=== PATIENT | female | born 1990 | race Caucasian/White ===

== ENCOUNTER → 2018-05-20 16:24 | Outpatient (CLI) | payer OTHER, SELFPAY ==
[2018-05-20 18:04] LABS: Add Manual Diff / Slide Review NO; Basophils Percent Auto 0.3 % (0-2); Eosinophils Percent Auto 0.5 % (2-4); Hematocrit 35.7 % (36-46); Hemoglobin 12.2 g/dL (12.0-16.0); Lymphocytes Percent Auto 24.6 % (25-40); Mean Corpuscular HGB Conc 34.3 % (30-36); Mean Corpuscular Hemoglobin 30.8 PG (26-34); Mean Corpuscular Volume 89.8 fL (80-100); Monocytes Percent Auto 7.9 % (3-14); Neutrophils Absolute Auto 4100 /uL (3000-5900); Neutrophils Percent Auto 66.7 % (50-75); Platelet Count 257 X10^3/uL (150-400); Red Blood Cell Count 3.98 X10^6/uL (4.0-5.2); Red Cell Distribution Width 12.6 % (11.6-14.8); White Blood Cell Count 6.2 X10^3/uL (4.5-11.0)
[2018-05-20 18:29] LABS: Appearance Urine UA CLEAR; Bilirubin Urine UA NEGATIVE (NEGATIVE); Color Urine UA YELLOW; Glucose Urine UA NEGATIVE (Normal); Ketones Urine UA NEGATIVE (NEGATIVE); Leukocyte Esterase Urine UA NEGATIVE (NEGATIVE); Nitrite Urine UA POSITIVE (Negative); Occult Blood Urine UA 2+ (Negative); Protein Urine UA NEGATIVE (Negative); Specific Gravity Urine UA <=1.005 (1.000-1.035); Urobilinogen Urine UA 0.2 E.U./dL (0.2)
[2018-05-20 18:32] LABS: Hep C Virus Ab w/Reflex Quant NEGATIVE s/c (NEGATIVE); Hepatitis B Surface Antigen NEGATIVE s/c (NEGATIVE)
[2018-05-20 18:33] LABS: HIV 1 and 2 Antibody NEGATIVE (NEGATIVE)
[2018-05-20 18:34] LABS: Bacteria Urine None Seen; WBC Urine None Seen (0-5/HPF)
[2018-05-20 18:39] LABS: RBC Urine 0-1/HPF (0-5/HPF)
[2018-05-22 14:34] LABS: RPR Screen Nonreactive (Nonreactive)
[2018-05-23 13:49] LABS: HSV 2 IGG AB 6.46 index (< 0.90); HSV1IGG < 0.90 index (< 0.90)
[2018-05-23 13:59] LABS: Varicella IgG Antibody < 135.00 Index (< 135.00)
== END ==
PROVIDERS: Visit Provider Obstetrics & Gynecology
DX: Z34.91 Encounter for supervision of normal pregnancy, unspecified, first trimester (principal)
CPT/HCPCS: 36415; 80055; 81003; 81015; 86695; 86696; 86703; 86787; 86803; 86850; 86900; 86901; 87077; 87086

== ENCOUNTER → 2018-07-02 12:13 | Outpatient (CLI) | payer OTHER, SELFPAY ==
[2018-07-09 12:39] LABS: AFP, Serum 36.7 ng/mL; Calc Gestational Age 16.3; Cigarette Smoker NOT GIVEN; Donated Egg N; Donor Egg Age NOT GIVEN; Estriol, Free 0.81 ng/mL; Inhibin A, Dimeric 93 pg/mL; Maternal Weight 182 lbs; Number of Fetuses 1; Previous Pregnancy Down Syndro N; hCG, MoM 1.66; hCG, Serum 48.2 IU/mL
== END ==
PROVIDERS: Visit Provider Obstetrics & Gynecology
DX: Z34.82 Encounter for supervision of other normal pregnancy, second trimester (principal)
CPT/HCPCS: 36415; 82105; 82677; 84702; 86336

== ENCOUNTER → 2018-07-30 09:52 | Outpatient (CLI) | payer OTHER, SELFPAY ==
--- NOTE | 2018-07-30 09:57 | DI.US.S_ITS ---
PROCEDURE: US OB >= 14 WEEKS FETUS INDICATIONS: ANATOMY OUTSIDE/PRIOR DATING DATA: Last menstrual period (LMP): 03/15/18. LMP-based estimated date of delivery (RAMOS): 12/20/18. First dating scan (date and location): 05/28/18. Estimated date of delivery (RAMOS) from first dating scan: 12/15/18. TECHNIQUE: Real-time scanning was performed of the fetus, with image documentation and biometric measurements. COMPARISON: [facility], OB <= 14 WEEKS FETUS, 05/28/2018, 9:00. [facility], , OB >= 14 WEEKS FETUS, 07/02/2018, 12:02. FINDINGS: General: A single living intrauterine gestation is present. Presentation: Vertex. Placenta: Placental position is fundal, without previa. Amniotic fluid index: 15 point cm, normal range is 5-24 cm. heart rate: 144 beats per minute. Maternal cervical canal: 4.8 cm long. Normal lower limit is 2.5 cm. biometrics: Biparietal diameter: 4.9 cm 20 weeks 5 days Head circumference: 18.1 cm 20 weeks 3 days Abdominal circumference: 16.2 cm 21 weeks 2 days Femur length: 3.2 cm 20 weeks zero days Estimated gestational age from initial scan: 20 weeks 2 days Composite gestational age from present scan: 20 weeks 4 days Estimated weight and percentile: 370 g 68th percentile Measurement variability for biometric dating: +/- 7 days from 14 weeks to 15 weeks 6 days gestation, +/- 10 days from 16 weeks to 21 weeks 6 days gestation, +/- 2 weeks from 22 weeks to 27 weeks 6 days gestation, +/- 3 weeks for 28 weeks gestation or later. weight reference: 4500 g or EFW >90/95% is considered macrosomia or large for gestational age. EFW <10% is small for gestational age. EFW 5% or less is considered intra-uterine growth restriction. Anatomic survey: Neuro: Ventricles are non-dilated at less than 10 mm. Cisterna magna is normal at 3-11 mm. Cerebellum is normal in size and morphology. Nuchal skin fold: Normal at less than 6 mm between 14-21 weeks gestational age. Face: Nose and lips, facial profile are normal. Spine: No evidence for spina bifida. Heart: 4-chambered heart is present, with normal ventricular outflow tracts. Diaphragm: Diaphragm is intact. Stomach: Left-sided stomach is present. Kidneys: No hydronephrosis. Normal is less than 5 mm in 2nd trimester, less than 7 mm in 3rd trimester. Cord: 3-vessel cord has orthotopic insertion. Bladder: Normal in size. Extremities: All 4 extremities identified. IMPRESSION: 1. Single live intrauterine with ultrasound gestational age today is 20 weeks 4 days compared to 20 weeks 2 days from initial ultrasound. Ultrasound RAMOS is unchanged 12/15/18. 2. Anatomy is within normal limits. Dictated by: Ratna Florez M.D. on 07/30/2018 at 14:36 Approved by: Ratna Florez M.D. on 07/30/2018 at 14:39
== END ==
PROVIDERS: Visit Provider Obstetrics & Gynecology
DX: Z34.82 Encounter for supervision of other normal pregnancy, second trimester (principal); Z3A.20 20 weeks gestation of pregnancy
CPT/HCPCS: 76811

== ENCOUNTER → 2018-08-27 12:54 | Outpatient (CLI) | payer OTHER, SELFPAY ==
[2018-08-27 14:31] LABS: Hematocrit 35.6 % (36-46); Hemoglobin 12.6 g/dL (12.0-16.0)
[2018-08-27 15:07] LABS: GTT (PREG) 1 Hour PP 50gm Dose 95 mg/dL (76-139)
== END ==
PROVIDERS: Visit Provider Obstetrics & Gynecology
DX: Z34.82 Encounter for supervision of other normal pregnancy, second trimester (principal)
CPT/HCPCS: 82950; 85014; 85018

== ENCOUNTER → 2018-11-19 15:19 | Outpatient (CLI) | payer OTHER, SELFPAY ==
[2018-11-20 17:49] LABS: Strep Grp B PCR NEG for Grp B Strep
== END ==
PROVIDERS: Visit Provider Obstetrics & Gynecology
DX: Z34.83 Encounter for supervision of other normal pregnancy, third trimester (principal)
CPT/HCPCS: 87653

== ENCOUNTER 2018-12-20 02:02 | Inpatient (IN) | payer OTHER, SELFPAY ==
[2018-12-20 02:52] LABS: Add Manual Diff / Slide Review NO; Basophils Absolute Auto 100 /uL (0-100); Basophils Percent Auto 0.3 % (0-2); Eosinophils Absolute Auto 0 /uL (0-450); Eosinophils Percent Auto 0.1 % (2-4); Hematocrit 34.5 % (36-46); Hemoglobin 12.2 g/dL (12.0-16.0); Lymphocytes Absolute Auto 1700 /uL (1100-4500); Lymphocytes Percent Auto 9.5 % (25-40); Mean Corpuscular HGB Conc 35.2 % (30-36); Mean Corpuscular Volume 90.7 fL (80-100); Monocytes Absolute Auto 800 /uL (0-900); Monocytes Percent Auto 4.3 % (3-14); Neutrophils Absolute Auto 15800 /uL (1500-7000); Neutrophils Percent Auto 85.8 % (50-75); Platelet Count 287 X10^3/uL (150-400); Red Cell Distribution Width 13.4 % (11.6-14.8); White Blood Cell Count 18.4 X10^3/uL (4.5-11.0)
[2018-12-20 03:00] VITALS: TEMP 36.4
[2018-12-20] MEDS: fentaNYL 100 MCG/2 ML INJ IV (03:00)
[2018-12-20] MEDS: LACTATED RINGERS 1,000 ML 100 ML IV (03:20)
[2018-12-20 05:56] VITALS: BP 110/60
[2018-12-20] MEDS: METHYLERGONOVINE 0.2 MG/ML VIAL IM (09:05)
[2018-12-20] MEDS: METHYLERGONOVINE 0.2 MG TABLET PO (09:43)
[2018-12-20] MEDS: IBUPROFEN 600 MG TABLET PO ×2 (11:14→17:19)
[2018-12-20] MEDS: DERMOPLAST SPRAY 20% 60 ML 1 SPRAY TOP (11:15)
[2018-12-20] MEDS: PRENATAL VIT,CALC/IRON/FOLIC 1 TABLET 1 TAB PO (17:20)
[2018-12-21 05:52] LABS: Hematocrit 28.2 % (36-46); Hemoglobin 9.8 g/dL (12.0-16.0)
[2018-12-21 08:48] VITALS: BP 107/65; PULSE 83; RESP 16; TEMP 36.4
[2018-12-21] MEDS: DOCUSATE 250 MG CAPSULE PO (10:04)
[2018-12-21] MEDS: PRENATAL VIT,CALC/IRON/FOLIC 1 TABLET 1 TAB PO (10:04)
--- NOTE | 2019-01-15 16:06 | PM.OBHP.1 ---
OB HPI Date/Time Date of admission: 12/20/18 Date Patient Seen: 12/20/18 Time Patient Seen: 06:00 History of Present Condition Chief complaint: Labor and Delivery : 2 Para: 1 Estimated Date of Delivery: 12/15/18 Estimated Gestational Age (weeks): 40+5 Narrative: Melani Ramirse is a 28 year old female 2 para 1 at 40-,5/7 weeks gestation in active labor History of Present care: good care, initiated at week # (10), number of visits (12) and pounds weight gain (51) Dating criteria: LMP confirmed by 1st trimester US Ultrasounds: normal 1st trimester US and normal mid trimester US Obstetrical complications: none Medical complications: none Preadmission Labs Blood type: A (+) positive -: Antibody screen: negative, GBS status: negative, HBsAG: negative, HIV: negative, HSV 1: negative, HSV 2: positive and RPR/VDLR: negative -: Chlamydia screen: not detected and Gonorrhea screen: not detected -: Rubella: immune and Varicella: not immune HCT: 35.6 HCAB: negative PAP: Normal Quad screen: Normal Urine: Negative 1 hr GTT: 95 Prior (ies) History: at 41 weeks Evaluation Evaluation Baseline heart rate: 145 Variability: Moderate (11-25) monitor accelerations: Present monitor decelerations: Absent Contraction Frequency (minutes): 3 Uterine Contraction Intensity: Moderate Category of Tracing: I Cervical dilation (cm): 6 Cervical effacement (%): 100 station: 0 Laboratory results: Laboratory Tests 12/20/18 12/20/18 12/21/18 02:20 02:20 05:25 WBC 18.4 H RBC 3.80 L Hgb 12.2 9.8 L Hct 34.5 L 28.2 L MCV 90.7 MCH 32.0 MCHC 35.2 RDW 13.4 Plt Count 287 Neut % (Auto) 85.8 H Lymph % (Auto) 9.5 L [place] % (Auto) 4.3 Eos % (Auto) 0.1 L Baso % (Auto) 0.3 Neut # (Auto) 95830 H Lymph # (Auto) 1700 [place] # (Auto) 800 Eos # (Auto) 0 Baso # (Auto) 100 Blood Type A Positive Antibody Screen Negative [facility] Social History Smoking Status: Former smoker Social History Smoking Status: Former smoker Meds Home Medications Medication Instructions Recorded Confirmed Type 1 tab PO DAILY 05/20/18 05/20/18 History vitamin,calcium,uqmxuyvz-zovr-pfrxd acid tablet nystatin 100,000 unit/gram topical 1 applictn TOP QID #15 gram 01/13/19 Rx cream Allergies Allergy/AdvReac Type Severity Reaction Status Date / Time Penicillins Allergy Severe Advised to Verified 05/20/18 11:11 avoid this and unsure of reaction! clindamycin Allergy Mild Verified 05/20/18 11:11 Exam Vital Signs (past 8 hours): Generally: Patient in moderate distress secondary to contractions Fundal height: 41 cm Estimated : 8 and 0.5 lb Extremities: 1+ edema, negative Homans Objective Labs Result Diagrams: 12/21/18 05:25 Assessment and Plan Assessment and Plan Assessment and Plan narrative: Assessment: 28-year-old 2 para 1 at 40-,5/7 weeks gestation in active labor Plan: Epidural as necessary Expected management to spontaneous vaginal delivery Time Spent with Patient Total time spent with greater than 50% in coordination of care (as documented) at patient's floor/unit and/or counseling patient:: 15-24 minutes
--- NOTE | 2019-01-15 16:14 | P.HPOB_ITS ---
OB HPI Date/Time Date of admission: 12/20/18 Date Patient Seen: 12/20/18 Time Patient Seen: 06:00 History of Present Condition Chief complaint: Labor and Delivery : 2 Para: 1 Estimated Date of Delivery: 12/15/18 Estimated Gestational Age (weeks): 40+5 Narrative: Melani Ramires is a 28 year old female 2 para 1 at 40-,5/7 weeks gestation in active labor History of Present care: good care, initiated at week # (10), number of visits (12) and pounds weight gain (51) Dating criteria: LMP confirmed by 1st trimester US Ultrasounds: normal 1st trimester US and normal mid trimester US Obstetrical complications: none Medical complications: none Preadmission Labs Blood type: A (+) positive -: Antibody screen: negative, GBS status: negative, HBsAG: negative, HIV: negative, HSV 1: negative, HSV 2: positive and RPR/VDLR: negative -: Chlamydia screen: not detected and Gonorrhea screen: not detected -: Rubella: immune and Varicella: not immune HCT: 35.6 HCAB: negative PAP: Normal Quad screen: Normal Urine: Negative 1 hr GTT: 95 Prior (ies) History: at 41 weeks Evaluation Evaluation Baseline heart rate: 145 Variability: Moderate (11-25) monitor accelerations: Present monitor decelerations: Absent Contraction Frequency (minutes): 3 Uterine Contraction Intensity: Moderate Category of Tracing: I Cervical dilation (cm): 6 Cervical effacement (%): 100 station: 0 Laboratory results: Laboratory Tests 12/20/18 12/20/18 12/21/18 02:20 02:20 05:25 WBC 18.4 H RBC 3.80 L Hgb 12.2 9.8 L Hct 34.5 L 28.2 L MCV 90.7 MCH 32.0 MCHC 35.2 RDW 13.4 Plt Count 287 Neut % (Auto) 85.8 H Lymph % (Auto) 9.5 L [place] % (Auto) 4.3 Eos % (Auto) 0.1 L Baso % (Auto) 0.3 Neut # (Auto) 42711 H Lymph # (Auto) 1700 [place] # (Auto) 800 Eos # (Auto) 0 Baso # (Auto) 100 Blood Type A Positive Antibody Screen Negative [facility] Social History Smoking Status: Former smoker Social History Smoking Status: Former smoker Meds Home Medications Medication Instructions Recorded Confirmed Type 1 tab PO DAILY 05/20/18 05/20/18 History vitamin,calcium,xujmgyev-iybk-pqzuo acid tablet nystatin 100,000 unit/gram topical 1 applictn TOP QID #15 gram 01/13/19 Rx cream Allergies Allergy/AdvReac Type Severity Reaction Status Date / Time Penicillins Allergy Severe Advised to Verified 05/20/18 11:11 avoid this and unsure of reaction! clindamycin Allergy Mild Verified 05/20/18 11:11 Exam Vital Signs (past 8 hours): Generally: Patient in moderate distress secondary to contr actions Fundal height: 41 cm Estimated : 8 and 0.5 lb Extremities: 1+ edema, negative Homans Objective Labs Result Diagrams: 12/21/18 05:25 Assessment and Plan Assessment and Plan Assessment and Plan narrative: Assessment: 28-year-old 2 para 1 at 40-,5/7 weeks gestation in active labor Plan: Epidural as necessary Expected management to spontaneous vaginal delivery Time Spent with Patient Total time spent with greater than 50% in coordination of care (as documented) at patient's floor/unit and/or counseling patient:: 15-24 minutes
--- NOTE | 2019-01-15 16:14 | PM.OBPRVD ---
Delivery date: 12/20/18 Intrapartal events: None Cervical ripening method: none Induction method: none Delivery monitor: external FHT and external uterine Route of delivery: Episiotomy description: None L&D Laceration Description: Superficial (Periurethral) Delivery repair: chromic Estimated blood loss (mL): 100 Anesthesia type: Epidural Complications: None Narrative: Patient complete and pushed for 48 min. At 7:48 a.m. a live male delivered spontaneously over an intact perineum. Loose nuchal cord x1 was reduced on the perineum. The remainder of the body delivered without difficulty and worse placed on mom's abdomen. The cord was double clamped and cut after it stopped pulsing. Cord bloods were obtained. The placenta delivered intact with a 3 vessel cord at 7:55 a.m.. Apgars 8 at 1 min and 9 at 5 min. A periurethral tear was repaired with 4 0 chromic. Hemostasis was achieved. Weight 8 lb 9.2 oz. . Epidural analgesia. Mom and stable to recovery. Plan for aftercare: To routine care
--- NOTE | 2019-01-15 16:18 | P.DS_ITS ---
Discharge Providers Date of admission: 12/20/18 02:02 Discharge Date: 12/21/18 Consults: 12/20/18 08:42 Consult to Clinical Program Coordinator Routine Comment: Discharge provider: Lizzeth Wilkinson MD Summary Date Patient Seen: 12/21/18 Time Patient Seen: 09:30 Procedures: Spontaneous vaginal delivery Periurethral laceration repair Epidural analgesia Hospital Course: Patient is a 28-year-old 2 para 2 at 40-,5/7 weeks gestation who presented in active labor. She had a spontaneous rupture of membranes. She received an epidural for pain management. She had a spontaneous vaginal delivery without complication. Her course was unremarkable Peripartum Data Infant Delivery Method: Natural Vaginal Laceration description: Superficial (Periurethral) Episiotomy description: None Procedures: Epidural analgesia Spontaneous vaginal delivery Periurethral laceration repair complications: none Status at Discharge Cognitive/behavioral status at discharge: oriented Functional status at discharge: independent ambulation Overall status at discharge: patient is progressing back to baseline Time Spent with Patient Total time spent providing and/or coordinating discharge services: Less than 30 minutes Objective Labs Result Diagrams: 12/21/18 05:25 Discharge Plan Discharge Plan Patient Disposition: Home Discharge comment: Call with fever, chills or bleeding vaginally more than a pad in an hour Discharge Med Rec/Prescriptions Prescriptions: Continued prenat.vits,bita,qox-ovjt-bcllk tablet 1 tab PO DAILY RF: 0 No Action nystatin 100,000 unit/gram cream 1 applictn TOP QID Qty: 15 RF: 0 Follow up/Referrals: Lizzeth Wilkinson MD [Physician] - 6 Weeks ('s office will call you with an appointment) Provider Discharge Instructions Diet: Regular Activity: No intercourse Skin/Wound/Dressing Care Report to your healthcare provider any signs of infection, such as:: chills, fever, increased pain and unusual drainage Visit Report/Discharge Packet Instructions: DI for Labor and Delivery, Vaginal Discharge Data Attending Provider: Lizzeth Wilkinson Admit Date/Time: 12/20/18 02:02 Discharges patient from system. Discharge Date/Time: 12/21/18 11:39
== END 2018-12-21 11:39 | disposition home or self-care (01) | DRG 807 ==
PROVIDERS: Admitting Provider Obstetrics & Gynecology; Visit Provider Obstetrics & Gynecology
DX: O69.81X0 Labor and delivery complicated by cord around neck, without compression, not applicable or unspecified (principal); Z37.0 Single live birth; Z3A.40 40 weeks gestation of pregnancy; O71.82 Other specified trauma to perineum and vulva
CPT/HCPCS: 01967; 36415; 59050; 59400; 85014; 85018; 85025; 86850; 86900; 86901; G0379; J2210; J3010

== ENCOUNTER → 2019-03-17 09:20 | Outpatient (CLI) | payer OTHER, SELFPAY ==
[2019-03-17 09:47] LABS: Influenza A and B by PCR Rapid Negative (Negative)
== END ==
PROVIDERS: PCP Family Medicine; Visit Provider Physician Assistant
DX: R68.89 Other general symptoms and signs (principal)
CPT/HCPCS: 87400; 87502

== ENCOUNTER 2019-11-04 04:20 | Emergency (ER) | payer OTHER, SELFPAY ==
[2019-11-04 04:40] VITALS: BP 144/77; PULSE 105; RESP 18; TEMP 36.8; O2SAT 100; BMI 33.4
--- NOTE | 2019-11-04 04:49 | DI.CT.S_ITS ---
PROCEDURE: CT KIDNEY URETER BLADDER (KUB) INDICATIONS: Left flank pain, hematuria TECHNIQUE: Noncontrast 5 mm thick sections acquired from the diaphragms to the symphysis. 5 mm thick coronal and sagittal reformats were then performed. For radiation dose reduction, the following was used: automated exposure control, adjustment of mA and/or kV according to patient size. COMPARISON: None. FINDINGS: Image quality: Excellent. Lung bases: Lung bases are clear. Heart size is normal. Urinary system: Both kidneys are normal in size. No kidney stones. No hydronephrosis or perinephric fat stranding. Both ureters appear non-dilated throughout their expected courses. Bladder wall thickness is normal; no calcified bladder stones. Subcentimeter superior pole left renal hypodensity is too small to accurately characterize but likely represents a cyst. Other solid organs: Liver is normal in size. Gallbladder is unremarkable. Pancreas is normal in contours. Spleen is normal in size. No adrenal nodules. Peritoneum and bowel: Unenhanced bowel loops demonstrate normal wall thickness and caliber. No free fluid or air. Visualized appendix appears unremarkable without periappendiceal stranding. Nodes and vessels: No retroperitoneal or mesenteric adenopathy by size criteria. Aorta and inferior vena cava are normal in caliber. Abdominal wall: No ventral hernias. Pelvis: Trace pelvic free fluid, likely physiologic. No inguinal hernias or adenopathy. An IUD is visualized and appears adequately positioned. Bones: No suspicious bony lesions. No acute vertebral body compression fractures. IMPRESSION: 1. CT abdomen and pelvis without acute abnormalities. Specifically, no evidence for urolithiasis or obstructive uropathy. No evidence for bowel obstruction, colitis/enteritis, or acute appendicitis. 2. An intrauterine device is visualized and appears to be appropriately positioned. 3. A subcentimeter superior pole left renal hypodensity which is too small to accurately characterize but likely represents a cyst. No significant discrepancy with the laborer salvage radiology preliminary report. Dictated by: Daren Landrum M.D. on 11/04/2019 at 8:19 Approved by: Daren Landrum M.D. on 11/04/2019 at 8:25
--- NOTE | 2019-11-04 04:57 | ED_ITS ---
HPI - Abdominal Pain General Chief Complaint: Abdominal Pain Stated Complaint: pain in lower abdomen Time Seen by Provider: 11/04/19 04:25 Source: patient Mode of arrival: Ambulatory Limitations: no limitations History of Present Illness HPI narrative: 29-year-old female nonsmoker with noncontributory medical history presents with a sudden onset left flank pain with radiation into her groin that started about 1 hour ago. She has had difficulty starting her urine stream but denies any dysuria, frequency or urgency. She denies any change in bowel habits. She has had no runny nose, sore throat no fever or chills. She denies provocation or palliation of her pain. The last menstrual period was in the 1st week of October and was normal. She has a copper IUD in place and denies any vaginal bleeding or discharge. She states there is a deep aching pain that is persistent with episodes of sharp and stabbing intense pain that seemed to have a mind of their own MD complaint: flank pain Onset (ago): hour(s) Pain Consistency: colicky Location: LLQ Severity: moderate Quality: stabbing and sharp Radiation: LLQ and L flank Relieving factors: nothing Exacerbating factors: nothing Associated symptoms: denies other symptoms Related Data Home Medications Medication Instructions Recorded Confirmed prenat.vits,bita,zlg-gozq-lkjac 1 tab PO DAILY 05/20/18 03/17/19 ascorbic acid-collagen PO 02/03/19 03/17/19 Previous Rx's Medication Instructions Recorded sertraline 50 mg tablet 50 mg PO DAILY #90 tab 05/22/19 ketorolac 10 mg PO TID 5 Days #15 tab 11/04/19 Allergies Allergy/AdvReac Type Severity Reaction Status Date / Time Penicillins Allergy Severe Advised to Verified 03/17/19 09:16 avoid this and unsure of reaction! clindamycin Allergy Mild Verified 03/17/19 09:16 Review of Systems Constitutional Constitutional: Denies chills, Denies fatigue, Denies fever(s), Denies frequent falls, Denies lethargy and Denies weakness Eyes Eyes: Denies change in vision, Denies eye discharge, Denies irritation and Denies loss of vision ENT Ears, Nose, Mouth, and Throat: Denies change in voice, Denies dizziness, Denies neck pain, Denies sore throat and Denies throat swelling Cardiovascular Cardiovascular: Denies chest pain, Denies irregular heart rhythm, Denies lightheadedness, Denies palpitations, Denies dyspnea, Denies dyspnea on exertion and Denies orthopnea Respiratory Respiratory: Denies cough, Denies dyspnea, Denies dyspnea on exertion and Denies wheezing Gastrointestinal Gastrointestinal: Denies abdominal pain, Denies change in bowel habits, Denies diarrhea, Denies nausea and Denies vomiting Genitourinary Genitourinary: Denies hematuria, Reports pelvic pain, Reports flank pain, Denies urinary incontinence and Denies urinary urgency Musculoskeletal Musculoskeletal: Denies back pain, Denies muscle weakness, Denies neck pain, Denies numbness and Denies tingling Integumentary/Breasts Skin/Breast: Denies pruritus, Denies erythema, Denies rash and Denies wounds Neurologic Neurologic: Denies behavioral changes, Denies confusion, Denies dizziness, Denies frequent falls, Denies loss of vision, Denies numbness, Denies tingling and Denies weakness Psychiatric Psychiatric: Denies anxiety, Denies behavioral changes, Denies confusion, Denies depression, Denies homicidal ideation and Denies suicidal ideation Endocrine Endocrine: Denies fatigue, Denies flushing and Denies palpitations Hematologic/Lymphatic Hematologic/Lymphatic: Denies easy bruising Allergic/Immunologic Allergic/Immunologic: Denies urticaria, Denies throat swelling and Denies wheezing Patient History Medical History Family history of breast cancer (Acute) Generalized anxiety disorder (Acute) IUD (intrauterine device) in place (Acute) Spontaneous vaginal delivery (Resolved) Family History Mother Breast cancer Father Alcoholism GI bleed Social History marital status: number of children: 2 household members: family lives independently: Yes Smoking Status: Former smoker alcohol intake: current substance use type: does not use Smoking Status: Former smoker alcohol intake frequency: 0-2 drinks per day Substance Use Type: does not use Exam Narrative Exam Narrative: GENERAL: [29] year old patient appears stated age. Well- nourished, well-developed patient, in mild distress. HEAD: Atraumatic. Normocephalic. EYES: Pupils equal round and reactive. Extraocular motions intact. No scleral icterus. No injection or drainage. ENT: Nose without bleeding, purulent drainage. Throat without erythema, tonsillar hypertrophy or exudate. Airway patent. NECK: Trachea midline. Non tender CARDIOVASCULAR: Regular rate and rhythm without murmurs, gallops, or rubs. RESPIRATORY: Clear to auscultation. Breath sounds equal bilaterally. No wheezes, rales, or rhonchi. GASTROINTESTINAL: Abdomen soft, non-tender, nondistended. EXTREMITIES: No edema or joint tenderness. BACK: Nontender without deformity or crepitance. No flank tenderness. NEURO: AOx3. SKIN: No rash or erythema of visible areas Initial Vital Signs Initial Vital Signs: Vital Signs Temperature 98.3 F 11/04/19 04:40 Pulse Rate 105 H 11/04/19 04:40 Respiratory Rate 18 11/04/19 04:40 Blood Pressure 144/77 H 11/04/19 04:40 Pulse Oximetry 100 11/04/19 04:40 Course Course Course Narrative: near complete resolution of symptoms after above stated therapies Orders Ordered: ED Orders 11/04/19 04:40 Urine Microscopic Stat 11/04/19 04:49 CT kidney ureter bladder (KUB) Stat 11/04/19 05:25 Basic Metabolic Panel Stat Complete Blood Count AUTO DIFF Stat Discontinued Medications Sodium Chloride (Normal Saline 0.9%) 1,000 mls @ 1,000 mls/hr IV BOLUS ONE Stop: 11/04/19 05:47 Ketorolac Tromethamine (Toradol) 15 mg IV NOW ONE Stop: 11/04/19 04:49 Vital Signs Vital signs: Vital Signs - 8 hr 11/04/19 04:40 Temperature 98.3 F Pulse Rate 105 H Respiratory Rate 18 Blood Pressure 144/77 H Pulse Oximetry 100 MDM - Abdominal Pain Lab Data Result diagrams: 11/04/19 05:25 11/04/19 05:25 Labs: Lab Results 11/04/19 11/04/19 11/04/19 Range/Units 04:40 05:25 05:25 WBC 4.6 (4.5-11.0) X10^3/uL RBC 4.33 (4.0-5.2) X10^6/uL Hgb 13.4 (12.0-16.0) g/dL Hct 38.9 (36-46) % MCV 89.8 (80-100) fL MCH 31.0 (26-34) PG MCHC 34.5 (30-36) % RDW 13.3 (11.6-14.8) % Plt Count 239 (150-400) X10^3/uL Neut % (Auto) 68.9 (50-75) % Lymph % (Auto) 19.2 L (25-40) % [place] % (Auto) 7.6 (3-14) % Eos % (Auto) 1.5 L (2-4) % Baso % (Auto) 2.8 H (0-2) % Neut # (Auto) 3200 (0319-0476) /uL Lymph # (Auto) 900 L (1242-1305) /uL [place] # (Auto) 400 (0-900) /uL Eos # (Auto) 100 (0-450) /uL Baso # (Auto) 100 (0-100) /uL Sodium 139 (137-145) mmol/L Potassium 3.9 (3.4-5.1) mmol/L Chloride 104 (98-107) mmol/L Carbon Dioxide 27 (22-32) mmol/L BUN 10 (7-17) mg/dL Creatinine 0.69 (0.52-1.04) mg/dL Estimated GFR > 60.0 (>60) mL/min BUN/Creatinine Ratio 14.5 (6-22) Glucose 87 (70-100) mg/dL Calcium 9.1 (8.4-10.2) mg/dL Urine RBC 5-10/hpf H (0-5/HPF) Urine WBC 1-5/hpf (0-5/HPF) Ur Squamous Epith Cells 10-30 /hpf H (0-5/HPF) Urine Bacteria Many (>30) H (None) Urine Mucus 2+ H (Negative) Ur Culture Indicated? Cult not indicated Point of care testing: Point of Care Testing Test Results Negative Urine Dip Bedside Urine Glucose Negative Bedside Urine Bilirubin - Negative Bedside Urine Ketone +/- 5 Urine Specific [place] 1.025 Bedside Urine Occult Blood +++ Bedside Urine pH 5.5 Bedside Urine Protein +/- 15 Bedside Urine Urobilinogen - Negative Bedside Urine Nitrite - Negative Bedside Urine Leukocytes - Negative Esterase Imaging Data CT scan - abdomen/pelvis: Radiologist's Impression: no kidney stone, or obstruction. Appropriate placement of IUD. Discharge Plan Departure Patient Disposition: Home Clinical Impression: Acute flank pain Instructions: DI for Kidney Stones Activity Restrictions/Additional Instructions: *You have been diagnosed with [acute left flank pain likely a missed kidney stone or musculoskeletal spasm] *What to do: *Take medications as directed *Follow up with your primary care provider in 2-3 days, call for an appointment. Let them know you were seen in the Emergency Department and that we ask that you be seen in follow up *Return to ER if you should have any new, worsening or concerning symptoms Prescriptions: New ketorolac 10 mg tablet 10 mg PO TID 5 Days Qty: 15 RF: 0 No Action sertraline 50 mg tablet 50 mg PO DAILY Qty: 90 RF: 1 prenat.vits,bita,hnh-lxrq-kzftu tablet 1 tab PO DAILY RF: 0 ascorbic acid-collagen PO RF: 0 Referrals: Crystal Santos DO [Primary Care Provider] -
[2019-11-04 05:10] LABS: Bacteria Urine Many (>30); Mucus Urine 2+ (Negative); RBC Urine 5-10/HPF (0-5/HPF); Squamous Epithelial Cell Urine 10-30 /HPF (0-5/HPF)
[2019-11-04 05:12] LABS: Culture Indicated Urine Cult Not Indicated; WBC Urine 1-5/HPF (0-5/HPF)
[2019-11-04 05:36] LABS: Add Manual Diff / Slide Review NO; Basophils Absolute Auto 100 /uL (0-100); Basophils Percent Auto 2.8 % (0-2); Eosinophils Absolute Auto 100 /uL (0-450); Eosinophils Percent Auto 1.5 % (2-4); Hematocrit 38.9 % (36-46); Hemoglobin 13.4 g/dL (12.0-16.0); Lymphocytes Absolute Auto 900 /uL (1100-4500); Lymphocytes Percent Auto 19.2 % (25-40); Mean Corpuscular HGB Conc 34.5 % (30-36); Mean Corpuscular Volume 89.8 fL (80-100); Monocytes Absolute Auto 400 /uL (0-900); Monocytes Percent Auto 7.6 % (3-14); Neutrophils Absolute Auto 3200 /uL (1500-7000); Neutrophils Percent Auto 68.9 % (50-75); Platelet Count 239 X10^3/uL (150-400); Red Blood Cell Count 4.33 X10^6/uL (4.0-5.2); Red Cell Distribution Width 13.3 % (11.6-14.8); White Blood Cell Count 4.6 X10^3/uL (4.5-11.0)
[2019-11-04 05:48] LABS: BUN Creatinine Ratio 14.5 (6-22); Blood Urea Nitrogen 10 mg/dL (7-17); Calcium 9.1 mg/dL (8.4-10.2); Carbon Dioxide 27 mmol/L (22-32); Chloride 104 mmol/L (98-107); Estimated Glomerular Filt Rate > 60.0 mL/min (>60); Glucose 87 mg/dL (70-100); HEMOLYSIS < 15 (0-50); Potassium 3.9 mmol/L (3.4-5.1); Sodium 139 mmol/L (137-145)
[2019-11-04] MEDS: KETOROLAC 60 MG/2 ML VIAL 15 MG IV (06:23)
[2019-11-04 06:34] VITALS: BP 105/61; PULSE 74; RESP 15; O2SAT 100
== END 2019-11-04 06:30 | disposition home or self-care (01) ==
PROVIDERS: Emergency Provider Emergency Medicine; PCP Family Medicine
DX: R10.32 Left lower quadrant pain (principal); R10.2 Pelvic and perineal pain; Z97.5 Presence of (intrauterine) contraceptive device
CPT/HCPCS: 36415; 74176; 80048; 81003; 81015; 81025; 85025; 96374; 99284; J1885

== ENCOUNTER → 2020-02-05 10:52 | Outpatient (CLI) | payer OTHER, SELFPAY ==
--- NOTE | 2020-02-05 10:53 | DI.MG.S_ITS ---
BILATERAL DIGITAL SCREENING MAMMOGRAM 3D/2D WITH CAD: 02/05/2020 CLINICAL: Baseline exam. Routine screening. No prior exams were available for comparison. The tissue of both breasts is heterogeneously dense. This may lower the sensitivity of mammography. Current study was also evaluated with a Computer Aided Detection (CAD) system. No significant masses, calcifications, or other findings are seen in either breast. IMPRESSION: NEGATIVE There is no mammographic evidence of malignancy. A 1 year screening mammogram is recommended. Additionally, given the patient's BRCA gene mutation, please consider annual screening breast MRI. This exam was interpreted at Station ID: [id number]. NOTE: For mammograms, a report in lay terms will be sent to the patient. Approximately 15% of breast malignancies will not be visualized mammographically. In the management of a palpable breast mass, a negative mammogram must not discourage biopsy of a clinically suspicious lesion. Electronically Signed By: Elizabeth Ordonez M.D. lk/:02/05/2020 12:16:00 letter sent: Normal Exam ACR BI-RADS Category 1: Negative [id number]
== END ==
PROVIDERS: PCP Family Medicine; Referring Provider Family Medicine; Visit Provider Family Medicine
DX: Z12.31 Encounter for screening mammogram for malignant neoplasm of breast (principal); Z15.01 Genetic susceptibility to malignant neoplasm of breast; Z80.3 Family history of malignant neoplasm of breast
CPT/HCPCS: 77063; 77067

== ENCOUNTER → 2020-02-18 13:31 | Outpatient (CLI) | payer OTHER, SELFPAY ==
--- NOTE | 2020-02-18 14:12 | DI.MRI.S_ITS ---
Patient Name: LIBRADO KELLY date: 1990 Sex: F Attending Physician: Tom Indications: Date: 02/18/2020 14:29 At the request of: MARCELL ESPARZA Procedure: MR breast BI wo/w con SCREENING BREAST MRI OF BOTH BREASTS: 02/18/2020 CLINICAL: Routine screening. Family history of breast cancer. BRCA positive. PROCEDURE: MR BREAST BI WO/W CON INDICATIONS: Postitive BRCA TECHNIQUE: The patient was placed prone in a dedicated breast imaging coil. Precontrast axial STIR and 3D FLASH without fat saturation sequences were obtained. Both before and after bolus injection of contrast, sequential 1-minute axial 3D FLASH with fat saturation sequences for 3 time points, with subtraction images and maximum intensity projections (MIP?s) generated. Delayed sagittal FLASH images with fat saturation were also obtained. Computer-aided detection, including computer algorithm analysis of MRI image data for lesion detection and characterization, pharmacokinetic analysis, with further physician review for interpretation, was performed. COMPARISON: 02/05/[address] [facility]. FINDINGS: Image quality: Excellent. There is moderate background parenchymal enhancement. Right breast: There is a round 6 mm in diameter mass within the right breast at an anterior depth at 7:00 o'clock (series 5/image 39 and series 14/image 55). Kinetic analysis demonstrates a combination of rapid and medium initial enhancement and predominantly persistent delayed phase kinetics. There is a blood Continued Report - Page 2 of 2 Patient Name: LIBRADO KELLY date: 1990 Sex: F Attending Physician: Tom Indications: Date: 02/18/2020 14:29 At the request of: MARCELL ESPARZA Procedure: MR breast BI wo/w con vessel feeding this mass suggesting an intramammary lymph node. No other suspicious enhancement or mass lesions within the right breast. Left breast: There is a focal region of non masslike enhancement which measures 1.2 x 0.3 x 1.1 cm within the left breast at 4:00 o'clock at a middle depth (series 13/image 43 and series 15/image 100). This region demonstrates a combination of rapid and predominantly medium initial enhancement with predominantly plateau delayed phase kinetics. No other suspicious enhancement or mass lesions within the left breast. Miscellaneous: No axillary or intramammary adenopathy. Limited visualization of the heart, lungs, mediastinum, and upper abdomen are unremarkable. No suspicious marrow enhancement where visualized. IMPRESSION: INCOMPLETE: NEEDS ADDITIONAL IMAGING EVALUATION 1. Focal enhancing mass within the lower outer quadrant of the right breast suspicious for an intramammary lymph node. 2nd look ultrasound is recommended to further characterize this finding. 2. Focal region of non masslike enhancement within the lower outer quadrant of the right breast. Secondlook ultrasound of this region is recommended. If the ultrasound is negative, given the patient's history of BRCA, MRI guided biopsy could be considered to exclude neoplasm. This exam was interpreted at Station ID: [id number]. Electronically Signed By: Elizabeth ashley/:02/19/2020 10:21:13 Entry: - 02/19/2020 10:21:13 letter sent: Need Ultrasound ACR BI-RADS Category 0: Incomplete [id number]
== END ==
PROVIDERS: PCP Family Medicine; Referring Provider Family Medicine; Visit Provider Family Medicine
DX: Z12.39 Encounter for other screening for malignant neoplasm of breast (principal); N63.13 Unspecified lump in the right breast, lower outer quadrant; N64.89 Other specified disorders of breast; Z15.01 Genetic susceptibility to malignant neoplasm of breast; Z15.02 Genetic susceptibility to malignant neoplasm of ovary; Z15.09 Genetic susceptibility to other malignant neoplasm; Z80.3 Family history of malignant neoplasm of breast
CPT/HCPCS: 77049; A9579

== ENCOUNTER → 2020-02-25 14:38 | Outpatient (CLI) | payer OTHER, SELFPAY ==
--- NOTE | 2020-02-25 15:05 | DI.US.S_ITS ---
Patient Name: LIBRADO KELLY date: 1990 Sex: F Attending Physician: Tom Indications: Date: 02/25/2020 15:22 At the request of: MARCELL ESPARZA Procedure: US breast RT limited ULTRASOUND OF RIGHT BREAST: 02/25/2020 CLINICAL: Second look follow up to MRI of 02/18/20. Comparison is made to exams dated: 02/18/2020 breast MRI and 02/05/2020 mammogram - [facility]. Color flow and real-time ultrasound of the right breast were performed on the areas of interest. Joy scale images of the real-time examination were reviewed. There is a 0.6 cm x 0.5 cm x 0.6 cm irregular mass in the right breast at 7 o'clock anterior depth. This irregular mass is hypoechoic. This correlates with breast MRI findings. IMPRESSION: SUSPICIOUS OF MALIGNANCY The 0.6 cm x 0.5 cm x 0.6 cm irregular mass in the right breast is at a moderate suspicion for malignancy. An ultrasound guided biopsy is recommended. Additionally, the patient will return for a second look ultrasound of the left breast in the near future. This was discussed with the patient by Dr. Landrum at the time of the study. This exam was interpreted at Station ID: [id number]. Electronically Signed By: Elizabeth ashley/:02/25/2020 15:56:27 letter sent: Biopsy Required Ultrasound BI-RADS: 4b Moderate suspicion of malignancy
== END ==
PROVIDERS: PCP Family Medicine; Referring Provider Family Medicine; Visit Provider Family Medicine
DX: R92.8 Other abnormal and inconclusive findings on diagnostic imaging of breast (principal); N63.13 Unspecified lump in the right breast, lower outer quadrant; Z15.01 Genetic susceptibility to malignant neoplasm of breast; Z15.02 Genetic susceptibility to malignant neoplasm of ovary
CPT/HCPCS: 76642

== ENCOUNTER → 2020-03-01 09:11 | Outpatient (CLI) | payer OTHER, SELFPAY ==
--- NOTE | 2020-03-01 09:36 | DI.US.S_ITS ---
Patient Name: LIBRADO KELLY date: 1990 Sex: F Attending Physician: Tom Indications: Date: 03/01/2020 09:38 At the request of: MARCELL ESPARZA Procedure: US breast LT limited ULTRASOUND OF LEFT BREAST: 03/01/2020 CLINICAL: F/U MRI. Comparison is made to [facility]time ultrasound of the left breast was performed on the area of interest. IMPRESSION: SUSPICIOUS OF MALIGNANCY There is no mammographic or sonographic abnormality seen in the left breast to correspond with the breast MRI finding. MRI guided biopsy is recommended. Please note, the patient has been recommended for a right ultrasound guided biopsy for a suspicious lesion as well. This exam was interpreted at Station ID: [id number]. Electronically Signed By: Elizabeth Ordonez M.D. lk/:03/01/2020 13:23:24 letter sent: Biopsy Required Ultrasound BI-RADS: 4 Suspicious for malignancy
== END ==
PROVIDERS: PCP Family Medicine; Referring Provider Family Medicine; Visit Provider Family Medicine
DX: R92.8 Other abnormal and inconclusive findings on diagnostic imaging of breast (principal); Z15.01 Genetic susceptibility to malignant neoplasm of breast; Z15.02 Genetic susceptibility to malignant neoplasm of ovary; Z80.3 Family history of malignant neoplasm of breast; Z15.09 Genetic susceptibility to other malignant neoplasm
CPT/HCPCS: 76642

== ENCOUNTER → 2020-03-22 09:18 | Outpatient (CLI) | payer OTHER, SELFPAY ==
--- NOTE | 2020-03-22 | DI.US.S_ITS ---
PROCEDURE: US BX BREAST PERC W VAC DEVICE COMPARISON: None. INDICATIONS: Right breast mass FINDINGS: IMPRESSION: Dictated by: Archie Patel M.D. on 03/22/2020 at 17:25 Approved by: Archie Patel M.D. on 03/22/2020 at 17:32
--- NOTE | 2020-03-22 | PATH_ITS ---
[facility] Accession Number: [id number] . 01 Material submitted: . breast - RIGHT BREAST MASS 7:00 2.5 CMFN . 01 Diagnosis: Right Breast, Mass 7 o'clock, 2.5 cm from Nipple, Image-Guided Core Biopsy: Fibrocystic change. Negative for significant atypia, epithelial hyperplasia, and malignancy. MRV 03/23/2020 1637 Local . 01 Electronically signed: . Geni Westfall MD, Pathologist NPI- [id number] . 01 Gross description: . Received one formalin-filled container, labeled with the patient's name and designated right breast mass 7 o'clock 2.5 cm FN. The specimen is received with a plastic filter in container, sample loose in container and consists of multiple yellow-smith portions of tissue which range in size from 0.3 x 0.2 x 0.2 cm to 1.2 x 0.2 x 0.2 cm. All fragments are totally submitted in one cassette. No collection date or time per container. Possible collection date and time per requisition: 03/22/20 at 10:15. Total fixation time: Approximately 17 hours. ([id number]) /FRJoseline 03/23/2020 0242 Local . 01 Pathologist provided ICD-10: N60.11 . 01 CPT . 809704 Performed at: [address], [place], [place] [id number] MD Pb Guerrero MD Phone: [phone]
--- NOTE | 2020-03-22 | DI.MG.S_ITS ---
PROCEDURE: MM DIAGNOSTIC MAMMO UNILAT RT2D COMPARISON: None. INDICATIONS: Right breast mass FINDINGS: IMPRESSION: Dictated by: Archie Patel M.D. on 03/22/2020 at 17:33 Approved by: Archie Patel M.D. on 03/22/2020 at 17:39
== END ==
PROVIDERS: PCP Family Medicine; Referring Provider Family Medicine; Visit Provider Family Medicine
DX: N60.11 Diffuse cystic mastopathy of right breast (principal)
CPT/HCPCS: 19083; 77065